=== PATIENT | female | born 1965 | race Caucasian/White ===

== ENCOUNTER 2025-01-17 14:07 | Outpatient (OUT) | payer OTHER, SELFPAY ==
--- NOTE | 2025-01-17 14:15 | MM_ITS ---
Patient Name: CONNOR ALDANA MR#: [id number] : 1965 Exam Date: 01/17/2025 Ordering Doctor: NOEL ROUSSEAU RADIOLOGY REPORT PROCEDURE: MM TOMOSYNTHESIS SCREENING BI COMPARISON: MG MAMM DX 3D LT CAD, 11/04/2022. MG MAMM SCREEN 3D ANA CAD, 09/30/2022. MG MAMM ANA DIAG W CAD, 12/30/2019. MG MAMM ANA SCRN W CAD DIG, 05/04/2007. INDICATIONS: Screening Calculator Name NCI Breast Cancer Risk Assessment Tool 5 Year Breast Cancer Risk 0.90% Lifetime Breast Cancer Risk 5.00% Personal Breast Cancer No Personal Ovarian Cancer No Treatments None Family Cancers None LOCATION: [facility] BREAST COMPOSITION: The breasts are heterogeneously dense,which may obscure small masses. FINDINGS: DIAGNOSTIC CATEGORY 0--INCOMPLETE: NEED ADDITIONAL IMAGING EVALUATION. LEFT BREAST: No significant suspicious finding. RIGHT BREAST: Asymmetry retroareolar plane right breast, posterior depth on MLO view only. RECOMMENDATIONS: ADDITIONAL MAMMOGRAPHIC VIEWS REQUIRED: RIGHT BREAST - spot-compression/true lateral views, possible ultrasound are recommended. PLEASE NOTE: A NORMAL MAMMOGRAM DOES NOT EXCLUDE THE POSSIBILITY OF BREAST CANCER. A CLINICALLY SUSPICIOUS PALPABLE LUMP SHOULD BE BIOPSIED. Dictated by: Boni Casper DO on 01/21/2025 at 15:33 Approved by: Boni Casper DO on 01/21/2025 at 15:38
== END 2025-01-17 14:08 | disposition home or self-care (01) ==
LOC: MAMMO 14:10
PROVIDERS: PCP Family Medicine; Visit Provider Specialist
DX: M81.0 Age-related osteoporosis without current pathological fracture (principal); Z12.31 Encounter for screening mammogram for malignant neoplasm of breast; M85.80 Other specified disorders of bone density and structure, unspecified site
CPT/HCPCS: 77063; 77067; 77080